=== PATIENT | female | born 1995 | race American Indian/Alaskan Native ===

== ENCOUNTER 2021-07-23 16:51 | Outpatient (REF) | payer MEDICAID, SELFPAY ==
[2021-07-23 15:52] LABS: BUN 16 mg/dL (7-18); CREATININE 0.8 mg/dL (0.55-1.02); Calcium 8.9 mg/dL (8.5-10.1); Chloride 106 mmol/L (98-107); Glucose 70 mg/dL (74-106); Potassium 3.9 mmol/L (3.5-5.1); Sodium 141 mmol/L (136-145)
[2021-07-23 15:58] LABS: HCT 38.1 % (36.0-46.0); HGB 11.9 g/dL (11.2-15.7); MCH 26.9 pg (27.0-33.0); MCHC 31.2 % (32.0-36.0); MPV 11.1 fL (8.0-11.0); Platelet Count 361 10^3/uL (130-400); RBC 4.43 10^6/uL (3.93-5.22); RDW 14.1 % (11.7-14.6); RDW-SD 44.2 fL
== END 2021-07-23 16:52 | disposition home or self-care (01) ==
LOC: LBN 16:51
PROVIDERS: Visit Provider Nurse Practitioner Family
DX: R23.8 Other skin changes (principal); G43.909 Migraine, unspecified, not intractable, without status migrainosus; R23.3 Spontaneous ecchymoses
CPT/HCPCS: 80048; 85027

== ENCOUNTER 2021-09-24 23:02 | Emergency (ER) | payer MEDICAID, SELFPAY ==
[2021-09-24 23:09] VITALS: BP 118/82; PULSE 78; RESP 14; TEMP 35.7; O2SAT 99
--- NOTE | 2021-09-24 23:30 | ED.GENADUL_ITS ---
Discharge Plan Disposition Patient Disposition: HOME Condition: Stable Discharge Details Clinical Impression: Jaw pain Primary Care Provider: None,None ED Provider: Nicolette Allen Home Meds and New Rx's Prescriptions: New cyclobenzaprine 10 mg tablet 10 mg PO TID PRNQty: 10 0RF Continued albuterol (refill) 90 mcg/actuation aerosol 90 mcg inhalation Q4H PRN hydroxyzine HCl 25 mg tablet See Rx Instructions PO QID PRN (Reason: headaches) Qty: 30 2RF Rx Instructions: 25-50 mg PO four times a day PRN; Xulane 150-35 mcg/24 hr patch weekly 1 patch transdermal QWEEK Qty: 9 5RF Rx Instructions: apply once weekly for 3 weeks of a 4-week cycle Discharge Instructions Instructions: Temporomandibular Disorder (ED) Additional Instructions: Please follow-up with dentist and establish care with primary care physician Take ibuprofen 600 mg every 8 hours with food Take Flexeril as needed for musculoskeletal pain and return earlier should you have new or worsening complaints Discharge Data Discharge Date/Time-TO BE ENTERED AT DEPARTURE: 09/24/21 23:47 Medical Decision Making Patient appears well, I suspect TMJ syndrome Will take an ibuprofen and Flexeril Referral to dentist Return precautions discussed and patient expressed understanding No evidence of deep space infection clinically Medical Records Medical records reviewed: Yes I reviewed the patient's medical records. Lab Data Lab results reviewed: Yes I reviewed the patient's lab results. HPI General Date/Time Provider Initiated Documentation: 09/24/21 23:19 . HPI Narrative: This 26-year-old female presents with right jaw pain for the past 3 days. Exacerbated by chewing. States the pain radiates into her ear. Denies prior history of similar symptoms in the past. She started a new job per patient. Denies any chest pain or shortness of breath. Denies chance of . Denies any known trauma to her teeth. Related Data Home Medications Medication Instructions Recorded Confirmed albuterol (refill) 90 90 mcg inhalation Q4H PRN 09/05/21 09/24/21 mcg/actuation aerosol inhaler hydroxyzine HCl 25 mg tablet See Rx Instructions PO QID PRN 09/05/21 09/24/21 headaches #30 tabs norelgestromin 150 mcg-e.estradiol 1 patch transdermal QWEEK #9 ea 09/10/21 09/24/21 35 mcg/24 hr weekly transderm patch (Xulane) cyclobenzaprine 10 mg tablet 10 mg PO TID PRN #10 tabs 09/24/21 Previous Rx's Medication Instructions Recorded hydroxyzine HCl 25 mg tablet See Rx Instructions PO QID PRN 09/05/21 headaches #30 tabs norelgestromin 150 mcg-e.estradiol 1 patch transdermal QWEEK #9 ea 09/10/21 35 mcg/24 hr weekly transderm patch (Xulane) cyclobenzaprine 10 mg tablet 10 mg PO TID PRN #10 tabs 09/24/21 Allergies Allergy/AdvReac Type Severity Reaction Status Date / Time pineapple Allergy Severe Verified 09/10/21 13:52 amitriptyline AdvReac Severe suicidal Verified 09/10/21 13:52 ideation General Stated Complaint: EarProblem GERALD: 4 Review of Systems All systems reviewed & are unremarkable except as noted in HPI and below PFSH All Active Problems (Updated 09/24/21 @ 23:34 by GUY Velázquez) Jaw pain (Acute) control counseling (Acute) Migraine headache with aura (Acute) Poor dentition (Acute) Concussion (Acute) Auditory hallucination (Acute) Depression (Chronic) Anxiety (Chronic) Asthma (Chronic) Medical History Easy bruising Hx of migraines Social History (Updated 09/10/21 @ 14:43 by Sapphire Teran NP) Smoking/Tobacco Use Status: Never Smoking risk assessment performed?: Yes Alcohol Intake: never Drug use: Never Substance use type: does not use Household members: family Sexually active: Yes Current gender identity: other Do you feel safe at home: Yes Do you feel safe in your relationship?: Yes Exam Const General: cooperative, comfortable and no acute distress HENMT Head: normal to inspection Other: Tenderness with palpation over right TMJ and reproducible symptoms with opening closing jaw No evidence of intraoral infection or abnormality TM negative for acute abnormality bilaterally uvula midline Resp Effort & Inspection: normal respiratory effort Cardio Rate: regular rate Neuro General: patient alert Course Vital Signs Vital signs: Vital Signs Temperature 35.7 C L 09/24/21 23:09 Pulse 78 09/24/21 23:09 Respiratory Rate 14 09/24/21 23:09 Blood Pressure 118/82 09/24/21 23:09 Pulse Oximetry 99 09/24/21 23:09 Temperature 35.7 C L 09/24/21 23:09 Temperature Source Tympanic 09/24/21 23:09 Pulse 78 09/24/21 23:09 Respiratory Rate 14 09/24/21 23:09 Respiratory Effort Non-Labored 09/24/21 23:14 Blood Pressure 118/82 09/24/21 23:09 Blood Pressure Position Sitting 09/24/21 23:09 Pulse Oximetry 99 09/24/21 23:09 Oxygen Delivery Method Room Air 09/24/21 23:09 Oxygen Flow Rate 0 09/24/21 23:09 Pain Level 6 09/24/21 23:14
[2021-09-24] MEDS: Cyclobenzaprine 10 MG TAB, 3 TABS/BTL PO (23:39)
[2021-09-24 23:44] VITALS: BP 118/82; PULSE 78; RESP 14; TEMP 35.7; O2SAT 99
== END 2021-09-24 23:47 | disposition home or self-care (01) ==
PROVIDERS: Emergency Provider Physician Assistant
DX: R68.84 Jaw pain (principal)
CPT/HCPCS: 99283

== ENCOUNTER 2021-12-14 07:32 | Emergency (ER) | payer MEDICAID, SELFPAY ==
--- NOTE | 2021-12-14 07:30 | RT.EKG_ITS ---
APPROVED REPORT Exam: Resting ECG Reason for Exam: chest pain Patient Location: E HR:93 bpm ECG Measurements Heart Rate 93 AXIS SD 120 P 64 QRSd 84 QRS 58 QT 355 T 42 QTc 441 Conclusion Sinus rhythm...normal P axis, V-rate 60- 99 Physician: no stemi
[2021-12-14 07:38] VITALS: BP 131/78; PULSE 99; RESP 14; TEMP 37; O2SAT 99
--- NOTE | 2021-12-14 08:36 | ED.GENADUL_ITS ---
Discharge Plan Disposition Patient Disposition: HOME Condition: Improving Discharge Details Clinical Impression: Headache, migraine Primary Care Provider: None,None ED Provider: Greg Beard Home Meds and New Rx's Prescriptions: Continued albuterol (refill) 90 mcg/actuation aerosol 90 mcg inhalation Q4H PRN Xulane 150-35 mcg/24 hr patch weekly 1 patch transdermal QWEEK Qty: 9 5RF Rx Instructions: apply once weekly for 3 weeks of a 4-week cycle topiramate 25 mg tablet 25 tab PO DAILY Label Comments: TAKE 1 TABLET BY MOUTH DAILY Discharge Instructions Instructions: General Headache (ED) Additional Instructions: Home to rest today. Sleep in a dark quiet room. Follow-up with your regular doctor for routine care. Return to the emergency department for any acute concerns. Small, frequent sips of fluids today to maintain good hydration Medical Decision Making 26-year-old female presents with fairly typical migraine headache. She has not taken medications at home. She had no motor or sensory dysfunction, she is not been injured. She was given Fioricet times 2. She had improvement with resolution of headache, stable and appropriate for discharge to home. HPI General Mode of arrival: ambulatory . Date/Time Provider Initiated Documentation: 12/14/21 07:57 . Limitations to Documentation: no limitations . Information obtained by: patient . History of Present Illness 26 year old F presents to the emergency department with the chief complaint of Headache, described as moderate, Quality is described as dull, and is localized to the head. Patient reports no radiation. Patient started experiencing this hour(s) and it has been constant. No relieving factors improve symptom(s), No exacerbating factors reported . Patient notes denies chest pain, syncope and weakness. Patient did receive the following treatments prior to arrival, none Related Data Home Medications Medication Instructions Recorded Confirmed albuterol (refill) 90 90 mcg inhalation Q4H PRN 09/05/21 12/14/21 mcg/actuation aerosol inhaler norelgestromin 150 mcg-e.estradiol 1 patch transdermal QWEEK #9 ea 09/10/21 12/14/21 35 mcg/24 hr weekly transderm patch (Xulane) topiramate 25 mg tablet 25 tab PO DAILY 12/14/21 12/14/21 Previous Rx's Medication Instructions Recorded norelgestromin 150 mcg-e.estradiol 1 patch transdermal QWEEK #9 ea 09/10/21 35 mcg/24 hr weekly transderm patch (Xulane) Allergies Allergy/AdvReac Type Severity Reaction Status Date / Time pineapple Allergy Severe Verified 12/14/21 07:43 amitriptyline AdvReac Severe suicidal Verified 12/14/21 07:43 ideation General Stated Complaint: GenMedical GERALD: 2 Review of Systems Narrative: Had transient tightness in her chest which responded to her home inhaler. No recent cough or fever. 7 systems were reviewed COUNT INCLUDES [facility] All Active Problems (Updated 12/14/21 @ 09:54 by Greg Beard MD) Headache, migraine (Chronic) control counseling (Acute) Migraine headache with aura (Acute) Poor dentition (Acute) Concussion (Acute) Auditory hallucination (Acute) Depression (Chronic) Anxiety (Chronic) Asthma (Chronic) Medical History Easy bruising Hx of migraines Social History Smoking/Tobacco Use Status: Never Smoking risk assessment performed?: Yes Alcohol Intake: never Drug use: Never Substance use type: does not use Household members: family Sexually active: Yes Current gender identity: other Do you feel safe at home: Yes Do you feel safe in your relationship?: Yes Exam Narrative Exam Narrative: GEN: awake, alert, oriented 3. Pleasant, well groomed, interactive. HEAD: Normocephalic, atraumatic ENT: Mucous membranes moist, oropharynx unremarkable, External ear exam unremarkable EYES: PERRL, EOMI NECK: Full ROM, no PARISH, no menigismus CHEST/RESP: Nontender, clear to auscultation bilateral, no wheeze/rhonchi/rales CARDIOVASCULAR: RRR, no murmur, rub earl. 2+ Rad pulse bilateral ABDOMEN: Soft, nontender, no mass. +Bowel sounds EXT: Full ROM, no edema, no rash Neuro: Grossly normal neurologic exam, conversant, interactive. Psych: Speech fluent, thoughts congruent, affect normal Course Vital Signs Vital signs: Vital Signs Temperature 37 C 12/14/21 07:38 Pulse 99 H 12/14/21 07:38 Respiratory Rate 14 12/14/21 07:38 Blood Pressure 131/78 12/14/21 07:38 Pulse Oximetry 99 12/14/21 07:38 Temperature 37 C 12/14/21 07:38 Temperature Source Tympanic 12/14/21 07:38 Pulse 99 H 12/14/21 07:38 Respiratory Rate 14 12/14/21 07:38 Respiratory Effort 12/14/21 08:20 Blood Pressure 131/78 12/14/21 07:38 Blood Pressure Position Supine 12/14/21 07:38 Pulse Oximetry 99 12/14/21 07:38 Oxygen Delivery Method Room Air 12/14/21 07:38 Oxygen Flow Rate 0 12/14/21 07:38 Pain Level 1 12/14/21 07:38
[2021-12-14] MEDS: Butalbital/Acetaminophen/Caffeine 50/325/40 TAB PO (08:50)
[2021-12-14 10:15] VITALS: BP 113/53; PULSE 83; RESP 16; TEMP 36.4; O2SAT 95
== END 2021-12-14 10:11 | disposition home or self-care (01) ==
PROVIDERS: Emergency Provider Emergency Medicine
DX: G43.909 Migraine, unspecified, not intractable, without status migrainosus (principal); R07.9 Chest pain, unspecified
CPT/HCPCS: 93005; 99283; 93010